=== PATIENT | male | born 1950 | race Caucasian/White ===

== ENCOUNTER 2023-06-06 10:25 | Outpatient (CLI) | payer MEDICARE, SELFPAY ==
[2023-06-06 12:43] LABS: Prostate Specific Antigen 5.3 ng/mL (< OR = 4.0)
== END 2023-06-06 10:26 | disposition home or self-care (01) ==
PROVIDERS: PCP Family Medicine; Visit Provider Urology
DX: R97.20 Elevated prostate specific antigen [PSA] (principal)
CPT/HCPCS: 36415; 84153